=== PATIENT | male | born 1965 | race Caucasian/White ===

== ENCOUNTER 2016-10-05 12:38 | Emergency (ER) | payer OTHER ==
[~2016-10-05] VITALS: Ht 170.2 cm; Wt 76.7 kg
[~2016-10-05 12:38] MED LIST: AZITHROMYCIN250 MG PO; MOTRIN600 MG PO; PROMETHAZINE D118 M1 PO
[2016-10-05 15:09] VITALS: BP 120/62
--- NOTE | 2016-10-05 16:08 | NUR ---
Patient ambulated to bed 4. RN evaluating patient at bedside.
[2016-10-05] MEDS ORDERED: NACL 0.9% 1,000 ML IV SCH (16:16)
[2016-10-05] MEDS ORDERED: FAMOTIDINE 20 MG/2 ML VIAL IVP ONE (16:20)
--- NOTE | 2016-10-05 18:00 | NUR ---
PT A/O FULL CLEAR SPEECH, STATES ABDOMINAL DISCOMFORT IMPROVED--DENIES NAUSEA---
[2016-10-05 18:01] VITALS: BP 128/76
--- NOTE | 2016-10-05 18:01 | NUR ---
Patient discharged with v/s stable. Written and verbal after care instructions given and explained. Patient alert, oriented and verbalized understanding of instructions. Ambulatory with steady gait. All questions addressed prior to discharge. ID band removed. Patient advised to follow up with PMD. Rx of ZANTAC given. Patient educated on indication of medication including possible reaction and side effects. Opportunity to ask questions provided and answered.
== END 2016-10-05 18:01 | disposition home or self-care (01) ==
LOC: MED 12:38
DX: K21.9 Gastro-esophageal reflux disease without esophagitis (principal); F17.200 Nicotine dependence, unspecified, uncomplicated
CPT/HCPCS: 36415; 80053; 81001; 82150; 83690; 85025; 96361; 96374; 99284; J3490; J7030